=== PATIENT | male | born 1975 | race Caucasian/White ===

== ENCOUNTER 2017-04-25 20:11 | Emergency (ER) | payer BC ==
[2017-04-25 20:52] VITALS: BP 183/99
--- NOTE | 2017-04-25 20:57 | UC ---
Cardiac HPI - HPI Summary HPI Summary: right side chest pain x 1 day no known injury, no radiation of the pain, no cold sx, no fever, no chills, no sob - History of Current Complaint Chief Complaint: UCChestPain Stated Complaint: RIGHT CHEST PAIN Time Seen by Provider: 04/25/17 20:17 Hx Obtained From: Patient Onset/Duration: Gradual Onset, Lasting Days - 1, Still Present Initial Severity: Moderate Current Severity: Moderate Pain Intensity: 5 Chest Pain Location: Right Anterior Character: Dull/Aching Aggravating Factor(s): Exertion, Movement Alleviating Factor(s): Rest Associated Signs & Symptoms: Positive: Negative, Chest Pain. Negative: Anxiety , Recent Stress, Headaches, Numbness, SOB, Swelling, Fever, Diaphoresis, Nausea/ Vomiting, Cough, Abdominal Pain, Calf Pain/Swelling - Allergy/Home Medications Allergies/Adverse Reactions: Allergies Allergy/AdvReac Type Severity Reaction Status Date / Time Penicillins Allergy Hives Verified 04/25/17 20:29 Home Medications: Home Medications NK [No Home Medications Reported] 04/25/17 [History Confirmed 04/25/17] PMH/Surg Hx/FS Hx/Imm Hx Previously Healthy: Yes - Surgical History Surgical History: None - Family History Known Family History: Negative: Diabetes - Social History Alcohol Use: Rare Substance Use Type: None Smoking Status (MU): Current Every Day Smoker Type: Cigarettes Amount Used/How Often: 1 PPD - Immunization History Most Recent Influenza Vaccination: no Review of Systems Constitutional: Negative Skin: Negative Eyes: Negative ENT: Negative Respiratory: Negative Cardiovascular: Negative Gastrointestinal: Negative Is Patient Immunocompromised?: No All Other Systems Reviewed And Are Negative: Yes Physical Exam Triage Information Reviewed: Yes Appearance: Well-Appearing, No Pain Distress, Well-Nourished Vital Signs: Initial Vital Signs Temp 98.8 F 04/25/17 20:29 Pulse 105 04/25/17 20:29 Resp 18 04/25/17 20:29 BP 183/99 04/25/17 20:29 Pulse Ox 98 04/25/17 20:29 Vital Signs Reviewed: Yes Eyes: Positive: Conjunctiva Clear ENT: Positive: Normal ENT inspection, Hearing grossly normal, Pharynx normal Neck exam: Normal Neck: Positive: Supple, Nontender, No Lymphadenopathy Respiratory: Positive: Chest non-tender, Lungs clear, Normal breath sounds Cardiovascular: Positive: RRR, No Murmur, Other: - + tenderness right anterior chest wall Abdominal Exam: Normal Abdomen Description: Positive: Nontender, No Organomegaly, Soft. Negative: Distended, Guarding Bowel Sounds: Positive: Present - Clinical Impression Provider Diagnoses: chest wall pain Discharge - Discharge Plan Condition: Stable Disposition: HOME Patient Education Materials: Chest Wall Pain (ED) Forms: *Work Release Additional Instructions: rest, ibuprofen as needed follow up with your pcp if not better in one week , sooner if getting worse
== END 2017-04-25 20:53 | disposition home or self-care (01) ==
LOC: UCCORT 20:11
DX: R07.89 Other chest pain (principal); Z88.0 Allergy status to penicillin; F17.210 Nicotine dependence, cigarettes, uncomplicated
CPT/HCPCS: 93005; 99201; G0463